=== PATIENT | male | born 1990 | race Hispanic/Latino ===

== ENCOUNTER 2019-06-10 05:48 | Day surgery (SDC) | payer OTHER ==
[2019-06-10] MEDS ORDERED: Morphine 4 MG/ML VIAL ONE ×2 (05:54→07:58)
[2019-06-10] MEDS ORDERED: Ondansetron PF 4 MG/2 ML Vial ONE ×2 (05:54→10:34)
[2019-06-10] MEDS ORDERED: Adacel (T-DAP) 0.5 ML SYRINGE ONE (06:31)
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
[2019-06-10] MEDS ORDERED: PROPOFOL 200 MG/20 ML VIAL ONE (10:34)
[2019-06-10] MEDS ORDERED: Dexamethasone 20 MG/5 ML VIAL ONE (10:34)
[2019-06-10] MEDS ORDERED: Lidocaine 1% PF 5 ML VIAL ONE (10:34)
[2019-06-10] MEDS ORDERED: Ketorolac Tromethamine 30 MG/ML VIAL ONE (10:34)
[2019-06-10] MEDS ORDERED: ePHEDrine 50 MG/ML VIAL ONE (10:34)
[2019-06-10] MEDS ORDERED: Succinylcholine Chloride 20 MG/ML 10 ml SYRINGE FS ONE (10:34)
[2019-06-10] MEDS ORDERED: Sodium Chloride 0.9% 0 ML ONE (11:42)
[2019-06-10] MEDS ORDERED: Ophthalmic Irrigation Solution 0 ML ONE (12:19)
[2019-06-10] MEDS ORDERED: Sodium Chloride 0.9% 10 ML ONE (12:19)
[2019-06-10] MEDS ORDERED: Lidocaine 1% w/Epinephrine 1:100K 20 ML VIAL ONE (12:19)
[2019-06-10] MEDS ORDERED: Bacitracin Zinc Ointment 30 gm TUBE ONE (12:19)
[2019-06-10] MEDS ORDERED: Chlorhexidine Gluconate 15 ML UDCUP SSP ONE (12:19)
[2019-06-10] MEDS ORDERED: Midazolam HCl 2 mg/2 ml Vial ONE (12:21)
[2019-06-10] MEDS ORDERED: Fentanyl 100 MCG/2 ML VIAL ONE (12:21)
[2019-06-10] MEDS ORDERED: HYDROcodone/Acetaminophen 5/325 mg Tablet ONE ×2 (15:24)
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
== END 2019-06-10 16:00 | disposition home or self-care (01) ==
LOC: ERS 05:48 → SDC 11:31
PROVIDERS: ATTEND Dentist Oral and Maxillofacial Surgery
PROC: 0KQ10ZZ Repair Facial Muscle, Open Approach (ICD-10-PCS; principal; 2019-06-10)
DX: S01.412A Laceration without foreign body of left cheek and temporomandibular area, initial encounter (principal); Z79.899 Other long term (current) drug therapy; V48.2XXA Person on outside of car injured in noncollision transport accident in nontraffic accident, initial encounter; Y93.84 Activity, sleeping
CPT/HCPCS: 70486; 90715; J0690; J1100; J1885; J2001; J2250; J2270; J2405; J2704; J3010; J3490